=== PATIENT | male | born 2000 | race Hispanic/Latino ===

== ENCOUNTER 2021-05-27 13:10 | Emergency (ER) | payer OTHER, SELFPAY ==
[2021-05-28 13:09] LABS: SARS-CoV-2 PCR by NAA DETECTED (NotDetected)
== END 2021-05-27 15:54 | disposition home or self-care (01) ==
LOC: CSHERS 13:10
DX: U07.1 COVID-19 (principal); J06.9 Acute upper respiratory infection, unspecified; J45.909 Unspecified asthma, uncomplicated
CPT/HCPCS: 87804; 99283; U0003; U0005

== ENCOUNTER 2021-08-01 12:38 | Emergency (ER) | payer SELFPAY ==
[2021-08-01] MEDS ORDERED: Ibuprofen 200 MG TAB ONE (14:59)
== END 2021-08-01 15:45 | disposition home or self-care (01) ==
LOC: CSHERS 12:38
DX: J10.1 Influenza due to other identified influenza virus with other respiratory manifestations (principal); R53.81 Other malaise
CPT/HCPCS: 87804; 99283

== ENCOUNTER 2023-07-19 17:45 | Emergency (ER) | payer OTHER, SELFPAY ==
[2023-07-19 18:39] LABS: SARS-CoV-2 NAA Rapid Test Not Detected (NotDetected)
== END 2023-07-19 18:30 | disposition home or self-care (01) ==
LOC: CSHERS 17:45
DX: J01.90 Acute sinusitis, unspecified (principal)
CPT/HCPCS: 99283